=== PATIENT | female | born 1955 | race Caucasian/White ===

== ENCOUNTER 2016-07-01 11:01 | Outpatient (CLI) | payer OTHER | END 2016-07-01 23:00 | LOC: LAB SRH 11:01 | DX: G43.109 Migraine with aura, not intractable, without status migrainosus (principal); G40.209 Localization-related (focal) (partial) symptomatic epilepsy and epileptic syndromes with complex partial seizures, not intractable, without status epilepticus; R90.82 White matter disease, unspecified | CPT/HCPCS: 90074; 95150 ==

== ENCOUNTER 2016-10-29 14:13 | Outpatient (CLI) | payer SELFPAY | END 2016-10-29 23:00 | LOC: LAB SRH 14:13 | DX: Z01.84 Encounter for antibody response examination (principal) | CPT/HCPCS: 90074; 90248; 90261; 90851 ==